=== PATIENT | male | born 1985 | race Caucasian/White ===

== ENCOUNTER 2018-12-20 05:08 | Emergency (ER) | payer OTHER ==
[~2018-12-20] VITALS: Ht 185.4 cm; Wt 90.9 kg
[2018-12-20 06:20] VITALS: BP 135/81
== END 2018-12-20 06:35 | disposition left against medical advice (07) ==
LOC: EMS 05:14
DX: F10.129 Alcohol abuse with intoxication, unspecified (principal); F19.10 Other psychoactive substance abuse, uncomplicated; F17.210 Nicotine dependence, cigarettes, uncomplicated; F11.90 Opioid use, unspecified, uncomplicated